=== PATIENT | male | born 1945 | race Asian ===

== ENCOUNTER 2016-07-21 13:36 | Emergency (ER) | payer OTHER ==
[2016-07-21 13:54] VITALS: O2SAT 96
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
--- NOTE | 2016-07-21 14:51 | DX ---
Left Knee, 5 portable views including a sunrise view History: Pain Comparison: None Findings: The knee is normally aligned. No arthritis or knee joint effusion is identified. There is n o arthritis, chondrocalcinosis, subcortical cyst formation, erosive change or fracture. Impression: No source for pain identified.
[2016-07-21 14:52] VITALS: BP 155/67; PULSE 82; RESP 18; TEMP 97.7
== END 2016-07-21 14:52 | disposition home or self-care (01) ==
DX: S80.02XA Contusion of left knee, initial encounter (principal); V13.4XXA Pedal cycle driver injured in collision with car, pick-up truck or van in traffic accident, initial encounter; Y92.410 Unspecified street and highway as the place of occurrence of the external cause; Y93.55 Activity, bike riding